=== PATIENT | male | born 1950 | race Caucasian/White ===

== ENCOUNTER 2020-11-15 07:55 | Outpatient (REF) | payer MEDICARE, OTHER, SELFPAY ==
--- NOTE | ~2020-11-15 | XR_ITS ---
EXAMINATION: XR HIP, RIGHT CLINICAL INFORMATION: Right hip pain COMPARISON: Previous x-ray March 2018 TECHNIQUE: Two views of the right hip and one view of the pelvis. FINDINGS: There is a right hip replacement. There is a long stem femoral component and multiple cerclage wires. There is extensive heterotopic bone formation adjacent to the superior lateral right hip joint and medial proximal femoral shaft. Orthopedic hardware appears unchanged. There is a new heterogeneous density and periosteal reaction adjacent to the medial right inferior pubic ramus on questionable for a healing fracture. This is new in the interval from March 2018 exam. Some of these changes may be due to overlapping calcified vessel. No other fracture is seen. There is a left hip replacement with longstem femoral component and cerclage wires that appears unchanged. There is evidence of atherosclerotic disease. There are degenerative changes of the visualized lower lumbar spine. XR/XR hip RT w PEL1V IMPRESSION: Stable appearance of bilateral hip replacements. Question healing fracture of the right inferior pubic ramus.
== END 2020-11-15 07:56 | disposition home or self-care (01) ==
LOC: HO.HOSX 07:55
PROVIDERS: Visit Provider Orthopaedic Surgery
DX: S79.911A Unspecified injury of right hip, initial encounter (principal); M70.61 Trochanteric bursitis, right hip; Z96.641 Presence of right artificial hip joint
CPT/HCPCS: 73502; 99202; 99212

== ENCOUNTER 2023-03-06 08:47 | Outpatient (AMB) | payer MEDICARE, OTHER, SELFPAY ==
[2023-03-06 09:08] VITALS: BMI 25.4
--- NOTE | 2023-03-06 09:08 | MHC.OFFVIS ---
Intake Vital Signs 03/06/23 09:08 Height 5 ft 7 in Weight 162 lb BMI 25.4 Intake Visit Reasons: New problem - left hand Intake Note: right hand dominant male presents today for his left hand ring finger. States he was having pain in his PIP joint when bending. Currently states its better however his pain is random. At times he has trouble bending and straightening out his finger. Denies injury, numbness or tingling. Hx of left hand surgery vascular narcosis 2014. Allergies Beta blockers Allergy (Unknown, Uncoded 03/06/23 09:08) Unknown Clindamycin HCl Allergy (Unknown, Uncoded 03/06/23 09:08) Unknown HPI New problem - left hand HPI Details Timo is a 72 year old right hand dominant man who presents with complaints of left ring finger pain. He complains of pain in his left ring finger PIP joint, primarily with motion. He says bending and straightening his ring finger at the PIP joint is difficult and painful at times. His pain was present for several months now, but he says this has been improving in the last few weeks. He still has some minor pain & swelling in his finger at times. He denies any pain today. He denies any history of locking or catching of his finger. He has a hx of foot drop and reports multiple falls due to balance issues. He thinks he may have injured his finger during one of these falls. He ambulates with a cane. He has a hx of bilateral carpal tunnel release in 2010, and a left wrist arthrodesis for avascular necrosis in 2014. He denies any wrist pain or numbness. He has a hx of heart failure and seizures. 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) History of hip surgery (~2002) History of revision of total replacement of left hip joint (~1998) History of removal of joint prosthesis of hip due to infection (~1998) H/O hernia repair (~1998) History of shoulder surgery (~1998) History of revision of total replacement of left hip joint (~1993) History of revision of total replacement of right hip joint (~1988) History of right hip replacement (~1982) History of left hip replacement (~1982) Social History (Updated 03/06/23 @ 09:11 by NICHOLE Bustamante) Current occupational status: retired Current occupation: rt hand Review of Systems Const All systems reviewed & are unremarkable except as noted in HPI and below Physical Exam Vital Signs: BMI result Body Mass Index 25.4 Const General: cooperative, healthy appearing and no acute distress Orientation/consciousness: patient oriented x3 HEENT Head: Yes normocephalic and Yes atraumatic Eyes EOM: EOMs intact bilaterally Resp Effort & Inspection: normal respiratory effort and able to speak in complete sentences Cardio Jugular venous distension: no JVD Skin General skin exam: turgor normal Rashes: no rashes Neuro General: patient oriented x3 Extrem Other: Evaluation of Left Upper Extremity: The patient is alert, oriented, and in no acute distress Neuro: Median, Ulnar, Radial nerves motor and sensory intact and sensation is normal to the tips of all digits Vascular: Cap refill brisk ROM: He can make a tight fist and extend all his digits, with good strength and no pain No locking or catching PIP joint stable on exam No swelling Skin: No lacerations or abrasions. General: No Ecchymosis. No Erythema or evidence of infection. Radiographs: 3 views of the left hand were taken and viewed by me today in clinic. They show no fractures or dislocations. It appears he had a wrist arthrodesis of the radial scapholunate, with three orthopedic philip. I do not see the lunate anymore and the capitate appears to be sitting on the distal radius. No significant arthritic changes in the ring finger PIP joint. Psych Appearance: grossly normal Affect: normal affect Attitude: cooperative Assessment & Plan Assessment & Plan (1) History of bilateral carpal tunnel release: Code(s): Z98.890 - Other specified postprocedural states (2) Status post fusion of wrist: Code(s): Z98.1 - Arthrodesis status (3) Pain involving joint of finger of left hand: Code(s): M25.542 - Pain in joints of left hand Plan Assessment & Plan: 1. Left ring finger pain Of the PIP joint I educated him about this condition No acute orthopedic intervention warranted at this time. This may likely be an old injury from a fall in the past. I recommend activity modification, and the use of assistive devices when necessary. He will work on ROM exercises at home, 20x daily If his symptoms persist or worsen he can follow up to discuss treatment options Otherwise, follow up prn. 2. History of left wrist AVN, S/P scapholunate arthrodesis DOS: ~2014 in [place] 3. History of bilateral carpal tunnel release, DOS: ~2010. Scribed for Maritza Perez MD by Woodrow No, emergency medical services coordinator, on 03/06/23 at 9:55 AM, EST. Coding Level of Care Code Est Pt Level 3 (60968) Diagnoses History of bilateral carpal tunnel release Z98.890 Status post fusion of wrist Z98.1 Pain involving joint of finger of left hand M25.542
== END 2023-03-06 09:52 | disposition home or self-care (01) ==
PROVIDERS: PCP Radiology Vascular & Interventional Radiology; Visit Provider Orthopaedic Surgery
DX: M25.542 Pain in joints of left hand (principal); Z98.1 Arthrodesis status
CPT/HCPCS: 99213

== ENCOUNTER 2023-03-06 11:01 | Outpatient (REF) | payer MEDICARE, OTHER, SELFPAY ==
--- NOTE | ~2023-03-06 | XR_ITS ---
EXAMINATION: XR HAND, LEFT CLINICAL INFORMATION: Pain COMPARISON: None available. TECHNIQUE: PA, lateral, and oblique views of the left hand. FINDINGS: The area of pain corresponding to the second finger on the left revealed mild changes of osteoarthritis with narrowing of the distal interphalangeal joint but no evidence of fractures or osseous destruction. Patient is status post fusion of the radiocarpal joint. There is extensive changes of osteoarthritis in the carpal bones and radiocarpal joint. Soft tissues unremarkable and there is degenerative joint spaces are preserved. XR/XR hand LT min 3V IMPRESSION: No acute abnormalities changes of osteoarthritis and postsurgical changes on the radiocarpal joint
== END 2023-03-06 11:02 | disposition home or self-care (01) ==
LOC: HO.HOSX 11:01
PROVIDERS: Visit Provider Orthopaedic Surgery
DX: M25.542 Pain in joints of left hand (principal)
CPT/HCPCS: 73130; 99212

== ENCOUNTER 2025-04-01 08:06 | Outpatient (AMB) | payer MEDICARE, OTHER, SELFPAY ==
--- NOTE | 2025-04-01 08:19 | A.OFFVIS_ITS ---
Intake Visit Reasons: follow up 1YR tremor Allergies Beta blockers Allergy (Unknown, Uncoded 03/06/23 09:08) Unknown Clindamycin HCl Allergy (Unknown, Uncoded 03/06/23 09:08) Unknown Medication List - Last Reconciled 04/01/25 by Mariely Ramos MD albuterol sulfate 90 mcg/actuation 2 puffs inhalation Q6H PRN allopurinol 150 mg PO DAILY aspirin (Adult Aspirin Regimen) 81 mg PO DAILY atorvastatin 40 mg PO DAILY beclomethasone dipropionate 80 mcg/actuation 2 sprays intranasal DAILY ciclesonide 160 mcg/actuation ([place]) inhalation dexamethasone sodium phosphate 0.4% 1.5 mL To be administered by physical therapist; duloxetine 30 mg PO DAILY ferrous gluconate 324 mg PO BID finasteride 5 mg PO DAILY fluconazole 50 mg PO DAILY folic acid 1 mg PO DAILY gabapentin 400 mg PO DAILY ibuprofen 800 mg PO TID lorazepam 1 mg PO DAILY PRN metformin 500 mg PO DAILY metoprolol succinate ER 100 mg PO DAILY omalizumab (Xolair) 375 mg subcut Q4W primidone 250 mg PO BEDTIME primidone 250 mg PO BID sacubitril-valsartan 24-26 mg (Entresto) 1 tab PO BID tamsulosin 0.4 mg PO DAILY thiamine HCl (vitamin B1) (Vitamin B-1) 100 mg PO DAILY trazodone 25 mg PO DAILY HPI Comments Details: 74 years old man with past medical history of alcohol abuse, associated liver failure, hepatic encephalopathy, CAD, depression, and tremor. He is presenting for a routine follow-up visit. He reports recent weight loss, which he attributes to age-related muscle loss, and his has been providing nutritional supplements. The patient states his sleep is good, a prior wound has healed well, and his liver is doing well. A medication review was conducted. He confirms taking propranolol, aspirin, atorvastatin, lorazepam, latanoprost, Xolair every two weeks, tamsulosin, Entresto, and trazodone. He reports not needing his albuterol inhaler and rarely taking ibuprofen. He denies taking duloxetine, gabapentin, or fluconazole. 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) History of hip surgery (~2002) History of revision of total replacement of left hip joint (~1998) History of removal of joint prosthesis of hip due to infection (~1998) H/O hernia repair (~1998) History of shoulder surgery (~1998) History of revision of total replacement of left hip joint (~1993) History of revision of total replacement of right hip joint (~1988) History of right hip replacement (~1982) History of left hip replacement (~1982) Social History (Updated 03/06/23 @ 09:11 by Linnette Hurst [facility]) Current occupational status: retired Current occupation: rt hand Physical Exam Neuro Other: Mental Status: Alert and oriented to person, place, and time. Normal attention. Normal spontaneous speech, fluency, and comprehension. Cranial Nerves: CN II: Visual arevalo full to confrontation, visual acuity intact. CN III, IV, : Pupils equal, round, reactive to light and accommodation. Extraocular movements are normal. CN V: Facial sensation is normal. CN VII: Facial movements symmetrical. CN VIII: Hearing intact to bedside conversation is normal. CN IX, X: Palate elevates symmetrically. CN XI: Shoulder shrug and head turn symmetrical. CN XII: Tongue midline without atrophy or fasciculations. Motor: Bulk and tone normal in all extremities. No significant muscle weakness in arms and legs. No drift. Reflexes: DTRs are absent. Coordination: [id number] with mild ataxia. Gait and Station: Cautoius gait with a cane. Extrapyramidal: Full facial expressions and blinking. No rigidity. Movements are appropriate with no tremor or abnormality. Speech: Normal; no dysarthria or tremor. Assessment & Plan Assessment & Plan (1) Tremor: Comment: Routine EEG at office in Feb 2016: WNL CT brain WO at [facility] in Feb 2015: b/l cerebellar and FT atrophy, mild to mod. 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 I discussed with the patient that he is stable from a neurologic standpoint. I will provide refills for his current medications for one year. I also informed him that a new prescription for upramagon will be sent to his pharmacy. We agreed on a follow-up appointment in one year. Medications: Refilled primidone 250 mg PO BID 180 tabs 3RF Coding Level of Care Code Est Pt Level 3 (17241) Diagnoses Tremor R25.1
== END 2025-04-01 08:27 | disposition home or self-care (01) ==
PROVIDERS: PCP Internal Medicine; Referring Provider Internal Medicine; Visit Provider Psychiatry & Neurology Neurology
DX: R25.1 Tremor, unspecified (principal)
CPT/HCPCS: 99213

== ENCOUNTER → 2025-04-01 08:06 | Outpatient (BNVA) | payer MEDICARE, OTHER, SELFPAY | PROVIDERS: PCP Internal Medicine; Referring Provider Internal Medicine; Visit Provider Psychiatry & Neurology Neurology | DX: R25.1 Tremor, unspecified (principal) | CPT/HCPCS: 99212 ==